=== PATIENT | female | born 1990 | race Caucasian/White ===

== ENCOUNTER 2021-08-14 23:33 | Outpatient (CLI) | payer OTHER ==
[~2021-08-14] VITALS: Ht 175.3 cm; Wt 80.0 kg
[2021-08-14 23:50] VITALS: BP 124/76
[2021-08-15 00:52] VITALS: BP 110/64
--- NOTE | 2021-08-15 06:27 | IPNPDOC ---
Text Note Date of Service The patient was seen on 08/15/21. NOTE Vital Signs Label Value Date Time Pulse 71 08/15/2151 Respiratory Rate 17 bpm 08/15/2151 Blood Pressure Assessment 110/64 (79) 08/15/2151 Source Automatic Cuff (NIBP) Blood Pressure Assessment 124/76 (92) 08/14/212349 Source Automatic Cuff (NIBP) Respiratory Rate 17 bpm 08/14/212349 Pulse 86 08/14/212349 Patient Temperature 99.3 degrees F 08/14/212349 Temperature Source Temporal 08/14/210 08/15/21 31 y.o LMP11/06/20 EEDC BY US AT 9.1 WEEKS 08/13/21 AT 40.1 WEEKS AFTER MEMBRANE STRIPPING HAD BLEEDING AND POSSIBLE SROM. RISK FACTORS GBS POSITIVE GESTATIONAL THROMBOCYTOPENIA POST DATES EXAMINATION NO DISTRESS SY HEIGHT 40 STERILE EXAMINATION CERVIX POSTERIOR SHOW BALLOTABLE 2 CM EXAMINATION COMPATABLE WITH STRIPPING MEMBRANES . NO EVIDENCE OF SROM. PLAN PRECAUTIONS GIVEN AND WILL HAVE APPOINTMENT PLANNED IOL AT 41 WEEKS . CATEGORY 1 STRIP NO DECELERATIONS ACCELERATIONS NOTED MODERATE VARIABILITY BASELINE NORMAL VS,Fishbone, I+O VS, Fishbone, I+O Vital Signs Date Time Temp Pulse Resp B/P (MAP) Pulse Ox O2 Delivery O2 Flow Rate FiO2 08/15/21 00:52 71 17 110/64 (79) Room Air 08/14/21 23:50 99.3 Red Ruth MD Aug 15, 2021 06:25
[2021-08-15] MEDS ORDERED: PRENTAB9 PO (18:44)
== END 2021-08-15 00:55 | disposition home or self-care (01) ==
LOC: M LDO 23:33
PROVIDERS: ATTEND Obstetrics & Gynecology
DX: O46.93 Antepartum hemorrhage, unspecified, third trimester (principal); Z3A.40 40 weeks gestation of pregnancy; O48.0 Post-term pregnancy; O99.820 Streptococcus B carrier state complicating pregnancy; O99.113 Other diseases of the blood and blood-forming organs and certain disorders involving the immune mechanism complicating pregnancy, third trimester; D69.6 Thrombocytopenia, unspecified
CPT/HCPCS: 59025; G0378; G0463

== ENCOUNTER 2021-08-15 17:55 | Inpatient (IN) | payer OTHER ==
[~2021-08-15] VITALS: Ht 175.3 cm; Wt 79.6 kg
[2021-08-15] VITALS (18 sets, daily range): BP systolic 111–140; BP diastolic 63–78
[2021-08-15] MEDS ORDERED: PRENTAB9 PO (18:44)
[2021-08-15] MEDS ORDERED: PENICILLIN G POTASSIUM IV 5 MU in D5W MINI-BAG PLUS 100 ML IV STA (18:45)
[2021-08-15] MEDS ORDERED: METHYLERGONOVINE MALEATE 0.2 MG/ML VIAL (J2210) IM PRN (18:45)
[2021-08-15] MEDS ORDERED: OXYTOCIN INJ 10 UNITS/ML VIAL (J2590) IV PRN (18:45)
[2021-08-15] MEDS ORDERED: OXYTOCIN DRIP 30 UNITS in IV 1 EA IV PRN ×6 (18:45)
[2021-08-15] MEDS ORDERED: TRANEXAMIC ACID INJection 1,000 MG in NS 100 ML IV PRN (18:45)
[2021-08-15] MEDS ORDERED: LACTATED RINGER'S 1000 ML IV STA (18:45)
[2021-08-15] MEDS ORDERED: LIDOCAINE 1% MDV 20ML VIAL INFIL PRN (18:45)
[2021-08-15] MEDS ORDERED: CARBOPROST TROMETHAMINE 250 MCG/ML AMP IM PRN (18:45)
[2021-08-15] MEDS ORDERED: HOME MED LIST COMPLETE! XX SCH (18:45)
[2021-08-15] MEDS ORDERED: OXYTOCIN DRIP 30 UNITS in IV 1 EA IV SCH (18:45)
[2021-08-15] MEDS ORDERED: LR 1,000 ML IV SCH (18:45)
[2021-08-15] MEDS ORDERED: OXYTOCIN INJ 10 UNITS/ML VIAL (J2590) IM PRN (18:45)
[2021-08-15 19:10] LABS: HEMATOCRIT 38.3 % (36.0-47.0); HEMOGLOBIN 13.4 g/dl (12.0-15.5); MEAN CORPUSCULAR HEMOGLOBIN 31.5 pg (27.0-33.0); MEAN CORPUSCULAR VOLUME 89.9 fl (80.0-96.0); PLATELET COUNT, AUTOMATED 154 10^3/uL (150-450); RED BLOOD COUNT 4.26 10^6/uL (4.00-5.40); WHITE BLOOD COUNT 21.7 10^3/uL (4.0-10.0)
[2021-08-15] MEDS ORDERED: FENTANYL 2MCG/ML ROPIVACAINE 0.2% IN 0.9% NACL 100ML IVBAG As Ordered ONE (19:33)
--- NOTE | 2021-08-15 20:00 | HPEPDOC ---
Obstetrical History & Physical General Date of Admission Aug 15, 2021 at 18:26 History of Present Illness The patient is a 31 yo G1 @40W2D BY 1T US Admitted in active labor at term. she report bloody show and loos of clear fluids at 2pm. She denies any new headaches, visual abnormalities, chest pain, worsening dyspnea, facial swelling, or upper extremity swelling. At this time, she continues to report regular movement. Dating Final EDC: Aug 13, 2021 Final EDC by: 1st trimester (US) EGA at Admission: 40 (40+2) Antepartum Course Height (inches): 69 Pre- weight (lbs.): 145 Admission Weight (lbs.): 179 Change in Weight (lbs.): 34 Past Medical History Past Obstetrical History : Past Obstetrical History: Primgravida [employer] History: No pertinent history Past Medical History Surgical History: Denies/None, Breast reduction, [place] teeth, Other Family History Significant Family History: No pertinent family hx Social History Marital Status: Family situation: Spouse/partner home Psychosocial History: No pertinent psych hx * Smoker: non-smoker Alcohol: Denies Drugs: denies Abuse Violence Screening Have you been hit/kicked/slapp: No Imunizations Tdap status: current Allergies Coded Allergies: No Known Allergies (Unverified , 08/15/21) Medications Scheduled No.137/Iron/Folic Acd ( Vitamin Tablet) 1 Each Tablet, 1 TAB PO DAILY Physical Examination Physical Examination GENERAL: Alert and oriented times three. BREAST: . ABDOMEN: Gravid and non-tender to touch. FETUS: Is vertex (VTX) by sterile vaginal examination (SVE), HEART RATE: Regular rate and rhythm. LUNGS: appropriate work of breathing EXTREMITIES: No edema. . Laboratory Data 24H LABS Laboratory Tests 2 08/15/21 18:51: Serology Scanned Report Hepatitis B Testing 08/15/21 18:56: CBC/BMP Pertinent Laboratoy Data Blood Type: O- RBC Antibody Screen: Negative HIV: Negative Hepatitis B: Negative Hepatitis C: Unknown Rapid Plasma Reagin: Nonreactive Rubella: Immune Varicella: Immune Chlamydia/Gonorrhea: Negative Group B Streptococcus: Positive Quad Screen Test: Negative Cystic Fibrosis: Negative Glucose Tolerance Test: 98 Vaginal Examination Dilation: 6 cm Effacement: 90% Station: 0 Cervical Consistency: Soft Cervical Position: Anterior Assessment Heart Rate (FHR): 140 Variability: Moderate Accelerations: Positive Decelerations: None Tocometer Contractions: Yes Frequency: regular Strength: palpated as strong Multi-drug resistant Organism: No history of MDRO Assessment/Plan Assessment Assessment: The patient is a 31 yo G1 @40W2D BY 1T US Admitted in active labor at term. Category I FHRT. APC: 1. Rh neg, received rhogam at 28 weeks 2. GBS pos- no pcn allergies 3. Gestational thrombocytopenia SVE: / GBS POS Cephalic by exam EFW [id number] Plan Plan: - Admit to L&D. - Consent signed and given to RN - CBC with type and screen. - EFM x2 - Anesthesia to see - Risks of augmentation with Pitocin discussed with patient if does not continue to progress on her own - GBS Positive. PCN ordered C-S as appropriate. Labor and Delivery Counseling We will deliver your baby through the vagina with possible assistance of forceps or vacuum device if needed for maternal or indications. Forceps and vacuum are devices that can assist with vaginal delivery when normal pushing efforts cannot achieve delivery on their own or when delivery is needed in an emergency for baby's well-being. Medications may be required to induce or augment (help) your labor in order to achieve a vaginal delivery. An episiotomy may be required to help your baby to delivery vaginally. You may also require repair of any lacerations or tears of your vagina or vulva that are caused by delivery. In some cases, emergencies can occur that require an emergency section delivery so quickly that there may not be enough time to stop and complete c onsent forms for section. Understand that if this occurs, your providers will discuss the need for a section with you before they proceed with surgery. section is the delivery of your baby through an incision in your abdomen. In some situations, section may be safer to mom and baby than continuing labor and is only performed when clinically indic ated. Risks of vaginal delivery include but are not limited to: Bleeding, infection, injury to the vagina, pelvic structures, injury to baby, damage to the uterus, reactions to anesthesia, uterine rupture, risk of hysterectomy for life threatening bleeding, or . Medications used to induce or augment labor may increase your risk for infection, uterine tachysystole, uterine rupture, heart rate abnormalities, need for emergency delivery or possible hysterectomy, and hemorrhage. Additional risks for use of forceps and vacuum include: increased risk of perineal and vaginal lacerations, risk of urinary or bowel incontinence, increased risk of injury to baby with bruising, scratches, hematomas on the head, or intracranial bleeding. MYRNA JO MD Aug 15, 2021 7:04 pm
[2021-08-15] MEDS ORDERED: ONDANSETRON 4MG/2ML VIAL IV PRN (20:30)
[2021-08-15] MEDS ORDERED: EPIDURAL COMMENT XX SCH (20:30)
[2021-08-15] MEDS ORDERED: FENTANYL/ROPIVACAINE/NACL BAG 100 ML EPIDURAL SCH (20:30)
[2021-08-15] MEDS ORDERED: REFRIGERATOR IV KEYS XX PRN (20:30)
[2021-08-15] MEDS ORDERED: NALOXONE INJ 0.4MG/1ML VIAL (J2310 PER 1MG) IV PRN (20:30)
[2021-08-15] MEDS ORDERED: ePHEDrine SULFATE 25 MG/5 ML(5MG/ML) SYRINGE IV PRN (20:30)
[2021-08-15] MEDS ORDERED: EPIDURAL/PCA KEYS XX PRN (20:30)
[2021-08-15] MEDS ORDERED: diphenhydrAMINE 50MG/ML VIAL (J1200) IV PRN (20:30)
[2021-08-15] MEDS ORDERED: LACTATED RINGER'S 1000 ML IV PRN (20:30)
[2021-08-15] MEDS ORDERED: PENICILLIN G POTASSIUM IV 2.5 MU in IV 1 EA IV SCH (23:00)
[2021-08-16] VITALS (8 sets, daily range): BP systolic 102–127; BP diastolic 55–69
[2021-08-16] MEDS ORDERED: ACETAMINOPHEN 500 MG TAB PO ONE (02:55)
[2021-08-16] MEDS ORDERED: DIBUCAINE 1% OINTMENT 30GM TOP PRN (03:10)
[2021-08-16] MEDS ORDERED: ANUSOL HC CREAM 30GM TOP PRN (03:10)
[2021-08-16] MEDS ORDERED: METHYLERGONOVINE MALEATE 0.2 MG TAB PO PRN (03:10)
[2021-08-16] MEDS ORDERED: ONDANSETRON 4MG/2ML VIAL IV PRN (03:10)
[2021-08-16] MEDS ORDERED: RHOGAM 300 MCG (1500 IU) INJ (J2790) IM SCH (03:10)
[2021-08-16] MEDS ORDERED: MOM 30ML SUSPENSION UDC PO PRN (03:10)
[2021-08-16] MEDS ORDERED: ACETAMINOPHEN 500 MG TAB PO PRN (03:10)
--- NOTE | 2021-08-16 03:20 | DNPDOC ---
[facility] Delivery Note Delivery Note DATE OF DELIVERY: 08/16/2021 PREDELIVERY DIAGNOSIS: 40-2/7 weeks' gestation and labor. POST DELIVERY DIAGNOSIS: Delivered. 3AMLL and Bilateral sulcal lacerations PROCEDURE: Spontaneous vaginal delivery EXPLOSIVES ENGINEER: SANDRO Palmer ANESTHESIA: EPIDURAL. ESTIMATED BLOOD LOSS: 400mL. FINDINGS: 7 pound 5 ounce, 3310G Male , Score 8/9 DELIVERY SUMMARY: Patient is a 31-year-old 1 now [id number] who was admitted to labor and delivery for active Labor. She progressed to C/C/+2 and with good maternal effort delivered a viable infant. The infants head delivered OA and the head was allowed to spontaneously restitute RUDY. loose nuchal cord noted and delivered through. anterior shoulders delivered with gentle downward traction followed by posterior shoulder and corpus without difficulty. Normal 3-vessel cord clamped x 2 and cut by FOB after 1 minute of delayed cord clamping. Spontaneous cry noted. Infant placed on maternal abdomen for [id number] Cord blood obtained. Placenta delivered spontaneously and inspection of the placenta demonstrated that it was intact. The cord insertion appeared normal. The uterus was cleared of all clots and debris. Fundal massage until firm. 30 units of Pitocin administered per protocol and the patient required no additional uterotonics. Inspection of cervix, perineum, and vaginal wall revealed a 3AMLL and Bilateral sulcal lacerations , the sulcals were repaired with running locking suture with good hemostasis. the 3A MLL was repaired by first approximating the muscle, then repaired in the fashion similar to a a 2nd degree. Repeat uterine examination noted uterine tone to be adequate and firm. Mom and infant stayed in L&D in hemodynamic stable condition upon my departure. Sponge, lap and needle count correct x 2. SANDRO OBGYTony Staff MYRNA JO MD Aug 16, 2021 03:20
[2021-08-16] MEDS: PRENATAL VITAMINS CHEWABLE TABLET PO SCH (09:00)
[2021-08-16] MEDS: DOCUSATE SODIUM 100MG CAPSULE PO SCH ×2 (09:00→20:35)
[2021-08-16] MEDS: IBUPROFEN 800 MG TAB PO PRN (17:56)
[2021-08-17] MEDS: IBUPROFEN 800 MG TAB PO PRN ×2 (03:26→12:59)
[2021-08-17 06:00] VITALS: BP 100/53
--- NOTE | 2021-08-17 06:22 | IPNPDOC ---
Progress Note Date of Service: Aug 17, 2021 Progress Note SUBJECT: Naomy Limon is a 31-year-old 1 now Para 1001 status post uncomplicated spontaneous vaginal delivery at 40+2 weeks' at approximately 0156 on [id number] of a male 7 pounds 5 ounces (3310 grams) with 3A vaginal laceration and repair, doing well day # 1. She has been ambulating, voiding spontaneously without issue and tolerating regular diet. Breast feeding without issue. Reports lochia is decreasing. Patient is ambulating well. OBJECTIVE: VITAL SIGNS: Within normal limits, afebrile. Alert and oriented times three. Breath sounds clear to auscultation. Heart rate: Regular rate and rhythm, no murmurs, rubs or gallops. Abdomen: Fundus firm at U-2. Soft, NTTP. Negative calf tenderness bilaterally. ASSESSMENT: as above, doing well on day 1. Vitals within normal limits, afebrile, hemodynamically stable with no evidence of infection. We discu ssed risk of infection, flatal/anal incontinence with 3a tear and patient indicated understanding. PLAN: 1. Discharge to home today likely. 2. Tylenol and Motrin for pain. 3. Encourage breast feeding and ambulation. 4. condoms for contraception 5. Follow up in clinic in one week for check of 3a repair, then routine PP visit in 6 weeks in clinic. 6. Bowel regimen discussed 7. Return precautions discussed VS, I&O, 24H, Fishbone Vital Signs/I&O Vital Signs Date Time Temp Pulse Resp B/P (MAP) Pulse Ox O2 Delivery O2 Flow Rate FiO2 08/16/21 18:00 98.5 90 17 102/59 (73) 98 Room Air MILADYS KIM DO Aug 17, 2021 00:35
[2021-08-17] MEDS ORDERED: IBUP80TA PO (06:27)
[2021-08-17] MEDS ORDERED: DOCU100C16 PO (06:27)
[2021-08-17] MEDS ORDERED: ACET-683 PO (06:27)
[2021-08-17] MEDS ORDERED: MIRA3350 PO (06:27)
[2021-08-17] MEDS: PRENATAL VITAMINS CHEWABLE TABLET PO SCH (08:55)
[2021-08-17] MEDS: DOCUSATE SODIUM 100MG CAPSULE PO SCH (08:55)
== END 2021-08-17 15:46 | disposition home or self-care (01) | DRG 768 ==
LOC: M LDO 17:55 → M LDI 18:26 → M OBS 08-16 04:30
PROVIDERS: ADMIT Obstetrics & Gynecology; ATTEND Obstetrics & Gynecology
PROC: 10E0XZZ Delivery of Products of Conception, External Approach (ICD-10-PCS; principal; 2021-08-16)
PROC: 0DQR0ZZ Repair Anal Sphincter, Open Approach (ICD-10-PCS; 2021-08-16)
DX: O48.0 Post-term pregnancy (principal); Z37.0 Single live birth; O99.12 Other diseases of the blood and blood-forming organs and certain disorders involving the immune mechanism complicating childbirth; O70.21 Third degree perineal laceration during delivery, IIIa; Z3A.40 40 weeks gestation of pregnancy; O99.824 Streptococcus B carrier state complicating childbirth; D69.6 Thrombocytopenia, unspecified

== ENCOUNTER → 2022-10-25 | Outpatient (CLI) | payer OTHER ==
[~2022-10-25] MED LIST: ACET-683 PO; DOCU100C16 PO; IBUP80TA PO; MIRA3350 PO; PRENTAB9 PO
== END ==
LOC: M RAD 07:53 → M PLAIMG 07:53
PROVIDERS: ATTEND Orthopaedic Surgery Hand Surgery
DX: M65.4 Radial styloid tenosynovitis [de Quervain] (principal)